=== PATIENT | male | born 1990 | race Hispanic/Latino ===

== ENCOUNTER 2019-06-17 04:04 | Emergency (ER) | payer OTHER, SELFPAY ==
[2019-06-17] MEDS ORDERED: Acetaminophen 500 MG TAB ONE (04:31)
--- NOTE | 2019-06-17 08:29 | RAD ---
TWO VIEW CHEST: INDICATION: Chest pain. FINDINGS: Lung nielson are clear. Heart and mediastinum appear normal. Osseous structures unremarkable. IMPRESSION: Unremarkable chest. POS: [facility]
--- NOTE | 2019-06-18 13:38 | EKG ---
Test Reason : Blood Pressure : / mmHG Vent. Rate : 081 BPM Atrial Rate : 081 BPM P-R Int : 146 ms QRS Dur : 102 ms QT Int : 366 ms P-R-T Axes : 045 -31 062 degrees QTc Int : 425 ms Normal sinus rhythm Possible Left atrial enlargement Left axis deviation Abnormal ECG Confirmed by AGATA ROSS ([id number]), index editor SLADE DEL RIO ([id number]) on 06/18/2019 1:38:19 PM Referred By: Confirmed By:AGATA ROSS
== END 2019-06-17 04:52 | disposition home or self-care (01) ==
LOC: ERS 04:04
DX: R07.89 Other chest pain (principal); F41.9 Anxiety disorder, unspecified
CPT/HCPCS: 71046; 93005